=== PATIENT | male | born 1945 | race Caucasian/White ===

== ENCOUNTER → 2018-01-21 | Day surgery (SDC) | payer OTHER, MEDICARE ==
[~2018-01-21] VITALS: Ht 177.8 cm; Wt 81.6 kg
--- NOTE | 2018-01-21 10:27 | Operative Report ---
Operative/Inv Procedure Report Surgery Date: 01/21/18 Name of Procedure: Left knee arthroscopy, partial medial meniscectomy Pre-Operative Diagnosis: Left knee medial meniscus tear Post-Operative Diagnosis: Left knee medial meniscus tear Estimated Blood Loss: scant Surgeon/Entry Level Electrician: Patrick Villafuerte MD Anesthesia: laryngeal mask airway, block Complications: None Condition: Stable to PACU Operative Indication: This 72-year-old male with long-standing left knee pain that has failed conservative care. MRI showed a medial meniscus tear. Risks and benefits of the procedure were discussed with the patient at length. Risks include but are not limited to nerve damage, muscle damage, infection, blood loss, blood clots, pulmonary embolus, and even . The patient agreed to the above risks and elected to proceed with surgery. Operative/Procedure Note Note: The patient was placed supine on the operating room table. A tourniquet was applied. The lower extremity was prepped and draped in normal sterile fashion. A timeout was performed before the incision. The site marking was visualized before incision. After the leg was prepped and draped, an Esmarch was used to exsanguinate the extremity. The tourniquet was inflated. A standard inferolateral portal was established with an 11 blade. The camera was inserted. A medial portal was established with a spinal needle and an 11 blade. The diagnostic arthroscopy was then performed which showed the above findings. An upbiter was used to debride the medial meniscus. There was a displaced fragment which was reduced and then debrided with a straight biter. The shaver was used to complete the debridement throughout the body and posterior horn of the medial meniscus. The knee was copiously irrigated. The portal sites were closed with 3-0 nylon suture in a simple interrupted fashion. The knee was injected with 10 mL of 0.25% Marcaine with epinephrine. A dry sterile dressing was applied and the patient was transferred to PACU in stable condition. Findings: Complex tear of the body and posterior horn of the medial meniscus. Grade 2 chondral changes of the medial femoral condyle. ACL intact. PCL intact. Lateral meniscus intact. The lateral compartment was extremely tight limiting visualization. Patellofemoral joint articular cartilage intact. No loose bodies noted.
== END ==
LOC: STS 03:44
DX: M23.204 Derangement of unspecified medial meniscus due to old tear or injury, left knee (principal); I10 Essential (primary) hypertension; E03.9 Hypothyroidism, unspecified; M51.36 Other intervertebral disc degeneration, lumbar region
CPT/HCPCS: J2250